=== PATIENT | male | born 2000 | race Caucasian/White ===

== ENCOUNTER 2024-11-27 11:29 | Emergency (ER) | payer MEDICAID, OTHER ==
[~2024-11-27] VITALS: Ht 190.5 cm; Wt 122.5 kg
[2024-11-27] MEDS ORDERED: oxyCODONE/APAP (5/325 MG) 1 UDTAB TABLET ONE (12:14)
[2024-11-27] MEDS ORDERED: IBUPROFEN 600 MG TABLET ONE (12:15)
[2024-11-27] MEDS: oxyCODONE/APAP (5/325 MG) 1 UDTAB TABLET PO ONE (12:18)
[2024-11-27] MEDS: IBUPROFEN 600 MG TABLET PO ONE (12:19)
[2024-11-27] MEDS ORDERED: LIDOCAINE 2% 20 ML MDV ONE (12:28)
[2024-11-27] MEDS: LIDOCAINE 2% 20 ML MDV TP ONE (12:39)
[2024-11-27] MEDS ORDERED: IBUP-1490 PO (13:27)
[2024-11-27] MEDS ORDERED: HYDR-3972 PO (13:27)
[2024-11-27 13:31] VITALS: BP 136/64; TEMP 98.4; O2SAT 100
== END 2024-11-27 13:32 | disposition home or self-care (01) ==
LOC: ER 11:39
DX: S52.591A Other fractures of lower end of right radius, initial encounter for closed fracture (principal); V87.8XXA Person injured in other specified noncollision transport accidents involving motor vehicle (traffic), initial encounter; Y93.89 Activity, other specified; Y92.488 Other paved roadways as the place of occurrence of the external cause; Y99.8 Other external cause status; F17.210 Nicotine dependence, cigarettes, uncomplicated
CPT/HCPCS: 25605; 99284; 73090; 73100; 73110; J3490